=== PATIENT | male | born 1945 | race Caucasian/White ===

== ENCOUNTER 2023-12-07 10:27 | Day surgery (SDC) | payer OTHER ==
[2023-12-06 13:21] LABS: BASOPHILS # (AUTO) 0.1 X10'3 (0-0.2); EOSINOPHILS # (AUTO) 0.1 X10'3 (0-0.9); EOSINOPHILS % (AUTO) 1.9 % (0-6); HEMATOCRIT 34.2 % (42.0-52.0); HEMOGLOBIN 11.2 g/dl (14.0-17.9); LYMPHOCYTES # (AUTO) 1.1 X10'3 (1.1-4.8); LYMPHOCYTES % (AUTO) 17.9 % (21-51); MEAN CORPUSCULAR HEMOGLOBIN 31.9 PG (27.0-31.0); MEAN CORPUSCULAR HGB CONC 32.7 g/dL (33.0-36.5); MEAN CORPUSCULAR VOLUME 97.7 FL (78-98); MEAN PLATELET VOLUME 7.7 FL (7.4-10.4); MONOCYTES # (AUTO) 0.6 X10'3 (0-0.9); NEUTROPHILS # (AUTO) 4.1 X10'3 (1.8-7.7); NEUTROPHILS % (AUTO) 69.2 % (42-75); PLATELET COUNT 175 X10'3 (140-440); RED CELL DISTRIBUTION WIDTH 16.6 % (11.5-14.5)
[2023-12-06 13:28] LABS: ALBUMIN 3.3 G/DL (3.4-5.0); ANION GAP 8 (8-16); BLOOD UREA NITROGEN 14 MG/DL (7-18); BUN/CREATININE RATIO 13.3 (10.0-20.0); CALCIUM 8.6 MG/DL (8.5-10.1); CHLORIDE 102 MMOL/L (99-107); CREATININE 1.05 MG/DL (0.60-1.10); GLUCOSE 141 MG/DL (70-104); POTASSIUM 4.1 MMOL/L (3.5-5.1); SODIUM 139 MMOL/L (135-145); TOTAL CARBON DIOXIDE 29.1 MMOL/L (24-32); eGFR 68 ML/MIN
[2023-12-06 13:32] LABS: INR 1.1 INR; PROTHROMBIN TIME 11.9 SECONDS (9.0-12.0)
[~2023-12-07] VITALS: Ht 172.7 cm; Wt 99.7 kg
[2023-12-07] VITALS (10 sets, daily range): BP systolic 137–167; BP diastolic 53–71; PULSE 50–75; RESP 12–18; O2SAT 94–99
[2023-12-07] MEDS ORDERED: MIDAZolam 1mg/ml 10ml vial IV ONE (10:45)
[2023-12-07] MEDS ORDERED: atropine 0.1mg/ml 10ml syringe IV ONE (10:45)
[2023-12-07] MEDS ORDERED: normal saline 1000ml 1,000 ML IV SCH (10:45)
[2023-12-07] MEDS ORDERED: amiodarone 150mg/dext, iso-os 100 ML IV ONE (10:45)
[2023-12-07] MEDS ORDERED: diphenhydrAMINE 25mg capsule PO ONE (10:45)
[2023-12-07] MEDS ORDERED: morphine 10mg/ml inj. IV ONE (10:45)
[2023-12-07] MEDS ORDERED: LORazepam 0.5 MG tablet PO ONE (10:45)
[2023-12-07] MEDS ORDERED: AMLO5TAB16 PO (10:51)
[2023-12-07] MEDS ORDERED: LOSA100T58 PO (10:51)
[2023-12-07] MEDS ORDERED: LIRA0.6P2 SQ (10:51)
[2023-12-07] MEDS ORDERED: ESOM40CA54 (10:51)
[2023-12-07] MEDS ORDERED: METF-438 PO (10:51)
[2023-12-07] MEDS ORDERED: ASCO500T23 PO (10:53)
[2023-12-07] MEDS ORDERED: AMI200T PO (10:53)
[2023-12-07] MEDS ORDERED: albuterol (10:53)
[2023-12-07] MEDS ORDERED: CLOP75TA34 (10:53)
[2023-12-07] MEDS ORDERED: APIX5TAB3 PO (10:53)
[2023-12-07] MEDS ORDERED: PIOG45TA64 PO (10:53)
[2023-12-07] MEDS ORDERED: ATOR20TA66 (10:53)
== END 2023-12-07 13:20 | disposition home or self-care (01) ==
LOC: SSTAY O 10:27
PROVIDERS: ATTEND Internal Medicine Cardiovascular Disease
DX: I48.19 Other persistent atrial fibrillation (principal); I48.3 Typical atrial flutter; I25.10 Atherosclerotic heart disease of native coronary artery without angina pectoris; I10 Essential (primary) hypertension; E11.9 Type 2 diabetes mellitus without complications; E66.9 Obesity, unspecified; Z68.33 Body mass index [BMI] 33.0-33.9, adult; J44.9 Chronic obstructive pulmonary disease, unspecified; G47.33 Obstructive sleep apnea (adult) (pediatric); K21.9 Gastro-esophageal reflux disease without esophagitis; E78.5 Hyperlipidemia, unspecified; I27.29 Other secondary pulmonary hypertension; I34.2 Nonrheumatic mitral (valve) stenosis; Z95.1 Presence of aortocoronary bypass graft; Z85.828 Personal history of other malignant neoplasm of skin; Z79.899 Other long term (current) drug therapy; Z98.890 Other specified postprocedural states; Z79.84 Long term (current) use of oral hypoglycemic drugs; Z88.8 Allergy status to other drugs, medicaments and biological substances; Z79.01 Long term (current) use of anticoagulants; Z95.5 Presence of coronary angioplasty implant and graft; Z87.891 Personal history of nicotine dependence; Z82.49 Family history of ischemic heart disease and other diseases of the circulatory system
CPT/HCPCS: 36415; 80048; 85025; 85610; 92960; 93005; J0282; J2250; J2274; J7030; A4620

== ENCOUNTER 2025-05-18 13:07 | Outpatient (CLI) | payer OTHER ==
[~2025-05-18 13:07] MED LIST: AMI200T PO; AMLO5TAB16 PO; APIX5TAB3 PO; ASCO500T23 PO; ATOR20TA66; CLOP75TA34; ESOM40CA66; LIRA0.6P2 SQ; LOSA100T58 PO; METF-438 PO; PIOG45TA64 PO; albuterol
[2025-05-18 13:40] LABS: BASOPHILS # (AUTO) 0.1 X10'3 (0-0.2); BASOPHILS % (AUTO) 1.4 % (0-1); EOSINOPHILS # (AUTO) 0.1 X10'3 (0-0.9); EOSINOPHILS % (AUTO) 2.6 % (0-6); HEMATOCRIT 34.1 % (42.0-52.0); HEMOGLOBIN 11.4 g/dl (14.0-17.9); LYMPHOCYTES # (AUTO) 1.1 X10'3 (1.1-4.8); LYMPHOCYTES % (AUTO) 26.2 % (21-51); MEAN CORPUSCULAR HEMOGLOBIN 32.6 PG (27.0-31.0); MEAN CORPUSCULAR HGB CONC 33.4 g/dL (33.0-36.5); MEAN CORPUSCULAR VOLUME 97.8 FL (78-98); MEAN PLATELET VOLUME 7.6 FL (7.4-10.4); MONOCYTES # (AUTO) 0.4 X10'3 (0-0.9); MONOCYTES % (AUTO) 8.7 % (2-12); NEUTROPHILS # (AUTO) 2.7 X10'3 (1.8-7.7); NEUTROPHILS % (AUTO) 61.1 % (42-75); PLATELET COUNT 156 X10'3 (140-440); RED BLOOD COUNT 3.49 X10'6 (4.70-6.10); RED CELL DISTRIBUTION WIDTH 14.3 % (11.5-14.5); WHITE BLOOD COUNT 4.3 X10'3 (4.5-11.0)
[2025-05-18] MEDS ORDERED: iohexol 350MG/ML 100ml bottle IV ONE (13:45)
[2025-05-18 13:52] LABS: APTT 30 SECONDS (22-32); INR 1.1 INR; PROTHROMBIN TIME 11.4 SECONDS (9.0-12.0)
[2025-05-18 13:54] LABS: ALANINE AMINOTRANSFERASE 34 U/L (12-78); ALBUMIN 3.8 G/DL (3.4-5.0); ALBUMIN/GLOBULIN RATIO 1.2 (1.1-1.5); ALKALINE PHOSPHATASE 166 IU/L (46-116); ANION GAP 9 (8-16); ASPARTATE AMINO TRANSFERASE 22 U/L (10-37); BILIRUBIN,TOTAL 0.4 MG/DL (0.1-1.0); BLOOD UREA NITROGEN 26 MG/DL (7-18); BUN/CREATININE RATIO 19.5 (10.0-20.0); CALCIUM 8.5 MG/DL (8.5-10.1); CHLORIDE 106 MMOL/L (99-107); CREATININE 1.33 MG/DL (0.60-1.10); GLUCOSE 183 MG/DL (70-104); POTASSIUM 4.9 MMOL/L (3.5-5.1); SODIUM 141 MMOL/L (135-145); TOTAL CARBON DIOXIDE 25.8 MMOL/L (24-32); TOTAL PROTEIN 7.1 G/DL (6.4-8.2); eGFR 52 ML/MIN
--- NOTE | 2025-05-19 18:16 | RADIOLOGY REPORT ---
Procedure: CT CTA PRE WATCHMAN Reason for study/Clinical History: Atrial fibrillation, evaluate pulmonary veins for EP ablation Comparison Study: None Exam Date: 05/18/2025 02:35 PM Technique: ECG gated cardiac and chest angiogram was performed following intravenous administration o f 100mL of Omnipaque 350. Thin and thick section axial, coronal, and sagittal images were reconstruc shy and reviewed on a PACS workstation. Post processing of left atrium and pulmonary veins with 3D re constructions was performed on an independent system workstation. CT low dose technique was utilized. Findings: Left atrial appendage: No left atrial appendage thrombus. Left atrial appendage ostium arises at the level of the left superior pulmonary vein in the craniocaudal axis. Ostium area is 553.6 sq mm with a n effective diameter 26.6 mm. Appendage measures 58.7 mm from ostium to tip. The appendix demonstrate s chicken wing morphology. Other Cardiac: Dilation of ventricles and right atrium. No pericardial thickening or effusion. Sever e coronary artery calcification. Other findings: Normal caliber of thoracic aorta and main pulmonary artery. No central pulmonary embo lism. No consolidation or edema. Atelectasis and scarring in the lung bases. No lymphadenopathy. Limited po rtions of the upper abdomen demonstrate no acute findings. No acute osseous abnormality. Impression: 1. No intracardiac or left atrial appendage thrombus. Measurements as above. Dilation of the atria an d ventricles. HS:Y
== END 2025-05-18 23:59 | disposition home or self-care (01) ==
LOC: RAD 13:07
PROVIDERS: ATTEND Student in an Organized Health Care Education/Training Program
DX: I25.10 Atherosclerotic heart disease of native coronary artery without angina pectoris (principal); I48.91 Unspecified atrial fibrillation; I48.92 Unspecified atrial flutter; J98.11 Atelectasis; J98.4 Other disorders of lung
CPT/HCPCS: 36415; 71275; 75572; 80053; 85025; 85610; 85730; Q9967

== ENCOUNTER 2025-07-16 10:08 | Day surgery (SDC) | payer OTHER ==
[~2025-07-16] VITALS: Ht 172.7 cm; Wt 91.2 kg
[~2025-07-16 10:08] MED LIST changes: +ALBU18HF2 IH; -AMI200T PO; +AMIO200T76 PO; -AMLO5TAB16 PO; -ATOR20TA66; +ATOR20TA66 PO; -CLOP75TA34; +CRAN250C2 PO; -ESOM40CA66; +ESOM40CA66 PO; +FERR236T3 PO; +FLUT1AER IH; +FURO20TA4 PO; +LACT-294 PO; -LIRA0.6P2 SQ; +METF-436 PO; -METF-438 PO; +MULT-964 PO; +ONDA-243 PO; -PIOG45TA64 PO; +SPIR25TA5 PO; -albuterol
[2025-07-16] MEDS ORDERED: MELA5CAP PO (10:57)
[2025-07-16 11:10] LABS: MEAN PLATELET VOLUME 7.7 FL (7.4-10.4); RED CELL DISTRIBUTION WIDTH 14.1 % (11.5-14.5)
[2025-07-16 11:22] VITALS: BP 139/52; PULSE 63; RESP 16; TEMP 97.7; O2SAT 97
[2025-07-16 11:22] LABS: APTT 30 SECONDS (22-32); INR 1.1 INR
[2025-07-16 11:29] VITALS: RESP 16; O2SAT 97
[2025-07-16 12:11] LABS: CREATININE 1.35 MG/DL (0.60-1.10); TOTAL CARBON DIOXIDE 24.8 MMOL/L (24-32); eCRCL 42 ML/MIN; eGFR 51 ML/MIN
[2025-07-16] MEDS ORDERED: midazolam 1 mg/ML 2ml injection ONE (12:18)
[2025-07-16] MEDS ORDERED: fentaNYL/PF 50MCG/1 ML 2ML syringe ONE (12:19)
[2025-07-16 14:17] VITALS: BP 137/62; PULSE 65; RESP 16; O2SAT 95
[2025-07-16] MEDS ORDERED: CLOP75TA34 PO (14:24)
[2025-07-16] MEDS ORDERED: ASPI-611 PO (14:24)
[2025-07-16 14:32] VITALS: BP 152/59; PULSE 60; RESP 16; O2SAT 96
[2025-07-16 14:47] VITALS: BP 159/62; PULSE 60; RESP 16; O2SAT 96
[2025-07-16 15:02] VITALS: BP 150/56; PULSE 60; RESP 16; O2SAT 95
--- NOTE | 2025-07-17 10:42 | CARDIOLOGY REPORT ---
APPROVED REPORT EXAM: Focused, limited transesophageal echocardiogram with color flow Doppler. 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 Overall systolic function is normal. LVEF is 65-70%. RIGHT VENTRICLE RV is normal size and function. ATRIA Left atrium appears severely dilated. Intact interatrial septum with tiny L to R shunt s/p transsepta l puncture by color flow Doppler. Left upper pulmonary vein identified. Successfully occluded left a trial appendage with well visualized Watchman device well positioned without thrombus. No residual fl ow detected around device in all color flow Doppler views. PERICARDIUM Normal pericardium. No effusion. CONCLUSION Normal LV size and wall thickness. Overall systolic function is normal. LVEF is 65-70%. RV is normal size and function. Left atrium appears severely dilated. Intact interatrial septum with tiny L to R s whaley s/p transseptal puncture by color flow Doppler. Left upper pulmonary vein identified. Minimal re sidual flow detected around device in all color flow Doppler views. Normal pericardium. No effusion. Conclusion Normal LV size and wall thickness. Overall systolic function is normal. LVEF is 65-70%. RV is normal size and function. Left atrium appears severely dilated. Intact interatrial septum with tiny L to R shunt s/p transseptal puncture by color flow Doppler. Left upper pulmonary vein identified. Minimal residual flow detected around device in all color flow Do ppler views. Normal pericardium. No effusion.
== END 2025-07-16 15:20 | disposition home or self-care (01) ==
LOC: SSTAY O 10:08
PROVIDERS: ATTEND Student in an Organized Health Care Education/Training Program
DX: I48.91 Unspecified atrial fibrillation (principal); I25.10 Atherosclerotic heart disease of native coronary artery without angina pectoris; I10 Essential (primary) hypertension; E11.9 Type 2 diabetes mellitus without complications; E78.5 Hyperlipidemia, unspecified; J44.9 Chronic obstructive pulmonary disease, unspecified; Z95.1 Presence of aortocoronary bypass graft
CPT/HCPCS: 36415; 80053; 85025; 85610; 85730; 93312; 93325; J2250; J3010; J7030; 99152